=== PATIENT | female | born 1980 | race African-American/Black ===

== ENCOUNTER 2016-09-20 07:33 | Emergency (ER) | payer MEDICAID ==
[~2016-09-20] VITALS: Ht 170.2 cm; Wt 59.0 kg
[~2016-09-20 07:33] MED LIST: FOLI-43 PO; PREN-88 PO
[2016-09-20 07:51] VITALS: BP 109/43
== END 2016-09-20 08:44 | disposition home or self-care (01) ==
LOC: ER 08:05
DX: R51 Headache (principal)
CPT/HCPCS: 99283

== ENCOUNTER 2017-02-15 14:28 | Emergency (ER) | payer MEDICAID ==
[~2017-02-15] VITALS: Ht 170.2 cm; Wt 56.0 kg
[2017-02-15 15:59] VITALS: BP 117/62
[2017-02-15] MEDS ORDERED: SILVER SULFADIAZINE 1% CREAM 25GM TOP ONE (16:45)
== END 2017-02-15 17:33 | disposition home or self-care (01) ==
LOC: ER 17:16
DX: T23.211A Burn of second degree of right thumb (nail), initial encounter (principal); X77 Intentional self-harm by steam, hot vapors and hot objects; Y93.89 Activity, other specified; Y92.89 Other specified places as the place of occurrence of the external cause; Y99.8 Other external cause status
CPT/HCPCS: 16020; 99285; Z7610

== ENCOUNTER 2018-08-13 10:56 | Emergency (ER) | payer MEDICAID ==
[~2018-08-13] VITALS: Ht 170.2 cm; Wt 59.0 kg
[2018-08-13 11:12] VITALS: BP 122/70
[2018-08-13 15:47] LABS: CLARITY URINE CLOUDY (CLEAR); COLOR URINE YELLOW (YELLOW); KETONES URINE NEGATIVE (NEGATIVE); LEUKOCYTE ESTERASE URINE 2+ (NEGATIVE); NITRITE URINE POSITIVE (NEGATIVE); OCCULT BLOOD URINE NEGATIVE (NEGATIVE); PROTEIN URINE NEGATIVE (NEGATIVE); SPECIFIC GRAVITY URINE 1.016 (1.005-1.030)
== END 2018-08-13 17:20 | disposition home or self-care (01) ==
LOC: ER 12:12
DX: N39.0 Urinary tract infection, site not specified (principal); M79.605 Pain in left leg; Z88.8 Allergy status to other drugs, medicaments and biological substances
CPT/HCPCS: 81025; 93971; 99284

== ENCOUNTER 2021-05-05 11:56 | Emergency (ER) | payer MEDICAID ==
[~2021-05-05] VITALS: Ht 170.2 cm; Wt 70.0 kg
[2021-05-05 18:46] LABS: BASOPHILS % 0.3 % (0.0-2.0); EOSINOPHILS % 0.7 % (0.0-5.0); HEMATOCRIT. 38.4 % (36.0-48.0); HEMOGLOBIN. 12.8 g/dL (12.0-16.0); LYMPHOCYTES % 17.1 % (20.0-50.0); MEAN CORPUSCULAR HEMOGLOBIN 33.5 pg (28.0-32.0); MEAN CORPUSCULAR VOLUME 100.4 fL (81.0-99.0); MEAN PLATELET VOLUME 9.1 fl (7.4-10.4); NEUTROPHILS % 76.9 % (40.0-76.0); PLATELET 292 x1000/uL (130-400); RED BLOOD CELL COUNT 3.83 mill/uL (4.2-5.4); RED CELL DISTRIBUTION WIDTH 12.9 % (11.6-14.6)
[2021-05-05 18:54] LABS: CHLORIDE 108 mEq/L (98-107)
[2021-05-05] MEDS ORDERED: HYDROCODONE/ACETAMINOPHEN 5/325MG TABLET PO ONE (20:00)
[2021-05-05 20:09] LABS: CLARITY URINE CLEAR (CLEAR); COLOR URINE YELLOW (YELLOW); KETONES URINE NEGATIVE (NEGATIVE); LEUKOCYTE ESTERASE URINE NEGATIVE (NEGATIVE); NITRITE URINE NEGATIVE (NEGATIVE); OCCULT BLOOD URINE NEGATIVE (NEGATIVE); PH URINE 5.5 (4.5-8.0); PROTEIN URINE NEGATIVE (NEGATIVE); SPECIFIC GRAVITY URINE 1.006 (1.005-1.030); UROBILINOGEN URINE 0.2 E.U./dL (0.2-1.0)
[2021-05-05 20:14] LABS: HCG SCREEN NEGATIVE
[2021-05-05] MEDS ORDERED: ACET650T37 MT (20:29)
[2021-05-05] MEDS ORDERED: AMOX-424 MT (20:35)
[2021-05-05] MEDS ORDERED: IBUP-2029 MT (20:36)
[2021-05-05] MEDS ORDERED: IBUPROFEN 600MG TABLET PO ONE (20:45)
[2021-05-05] MEDS ORDERED: AMOXICILLIN/POTASSIUM CLAVULANATE 875/125MG TAB PO ONE (20:45)
[2021-05-05 21:13] VITALS: BP 113/73
== END 2021-05-05 21:19 | disposition home or self-care (01) ==
LOC: ER 11:56
DX: R10.30 Lower abdominal pain, unspecified (principal); N85.8 Other specified noninflammatory disorders of uterus; I49.8 Other specified cardiac arrhythmias
CPT/HCPCS: 36415; 76830; 76856; 80053; 81003; 81025; 84703; 85025; 86850; 86900; 93005; 99285